=== PATIENT | male | born 1980 | race Caucasian/White ===

== ENCOUNTER 2020-04-18 21:08 | Emergency (ER) | payer OTHER ==
[2020-04-18 21:15] VITALS: RESP 18
--- NOTE | 2020-04-18 22:09 | XR ---
EXAMINATION TYPE: XR chest 2V DATE OF EXAM: 04/18/2020 COMPARISON: NONE HISTORY: Respiratory failure TECHNIQUE: 2 views FINDINGS: There is slight coarsening of interstitial markings. There is no pulmonary consolidation. H eart size is normal. There is no pleural effusion. Bony thorax is intact. IMPRESSION: Slight increased markings. No heart failure or pulmonary consolidation.
[2020-04-18 22:15] LABS: ALT 26 U/L (4-49); AST 35 U/L (17-59); African American GFR (CKD) >90 (>60 ml/min/1.73 sqM); Albumin 4.4 g/dL (3.5-5.0); Alkaline Phosphatase 82 U/L (38-126); Anion Gap 6 mmol/L; Blood Urea Nitrogen 10 mg/dL (9-20); Calcium 9.5 mg/dL (8.4-10.2); Carbon Dioxide 26 mmol/L (22-30); Chloride 106 mmol/L (98-107); Glucose 99 mg/dL (74-99); Non-African American GFR(CKD) >90 (>60 ml/min/1.73 sqM); Potassium 4.1 mmol/L (3.5-5.1); Sodium 138 mmol/L (137-145); Total Bilirubin 0.6 mg/dL (0.2-1.3)
[2020-04-18 23:13] LABS: Basophils # (A) 0.2 k/uL (0-0.2); Basophils % (A) 1 %; Eosinophils # (A) 0.3 k/uL (0-0.7); Eosinophils % (A) 2 %; HCT 49.3 % (39.0-53.0); HGB 16.8 gm/dL (13.0-17.5); Lymphocytes # (A) 4.8 k/uL (1.0-4.8); Lymphocytes % (A) 37 %; MCHC 34.1 g/dL (31.0-37.0); Mean Platelet Volume 6.9; Monocytes # (A) 0.8 k/uL (0-1.0); Monocytes % (A) 6 %; Neutrophils # (A) 6.7 k/uL (1.3-7.7); Neutrophils % (A) 52 %; Platelet Count 292 k/uL (150-450); RBC 5.42 m/uL (4.30-5.90); RDW 12.3 % (11.5-15.5); WBC 12.8 k/uL (3.8-10.6)
--- NOTE | 2020-04-18 23:13 | ED ---
General Adult HPI - General Source: patient, RN notes reviewed, old records reviewed Mode of arrival: ambulatory Limitations: no limitations <Malvin Cuevas - Last Filed: 04/18/20 23:20> <Melany Reardon - Last Filed: 04/19/20 02:10> - General Chief complaint: Recheck/Abnormal Lab/Rx Stated complaint: Sent by dr- cpap issues Time Seen by Provider: 04/18/20 21:30 - History of Present Illness Initial comments: 40-year-old male patient presents ED for evaluation. Patient reports that he has sleep apnea he has a CPAP device which monitors him during his sleep. Patient reports that he got a call he has been having apnic episodes during the night, primary care provider called patient for him to present to the hospital. Denies any acute complaints at this time. Systemic: Pt denies fatigue, fever/chills, rash. Pt denies weakness, night sweats, weight loss. Neuro: Pt denies headache, visual disturbances, syncope or pre-syncope. HEENT: Pt denies ocular discharge or irritation, otalgia, rhinorrhea, pharyngitis or notable lymphadenopathy. Cardiopulmonary: Pt denies chest pain, SOB, heart palpitations, dyspnea on exertion. Abdominal/GI: Pt denies abdominal pain, n/v/d. : Pt denies dysuria, burning w/ urination, frequency/urgency. Denies new onset urinary or bowel incontinence. MSK: Pt denies myalgia, loss of strength or function in extremities. Neuro: Pt denies new onset weakness, paresthesias. (Malvin Cuevas) - Related Data Home Medications Medication Instructions Recorded Confirmed Doxycycline Hyclate 100 mg PO DAILY 04/18/20 04/18/20 Fluconazole [Diflucan] 150 mg PO Q72H 04/18/20 04/18/20 Ibuprofen [Advil] 200 mg PO Q8HR PRN 04/18/20 04/18/20 Allergies Allergy/AdvReac Type Severity Reaction Status Date / Time acetaminophen [From [place]] Allergy Anaphylaxis Verified 04/18/20 21:53 aspirin Allergy Anaphylaxis Verified 04/18/20 21:53 hydrocodone [From [place]] Allergy Anaphylaxis Verified 04/18/20 21:53 Penicillins Allergy Anaphylaxis Verified 04/18/20 21:53 Review of Systems ROS Other: All systems not noted in ROS Statement are negative. <Malvin Cuevas - Last Filed: 04/18/20 23:20> ROS Other: All systems not noted in ROS Statement are negative. <Melany Reardon Agnes - Last Filed: 04/19/20 02:10> ROS Statement: Those systems with pertinent positive or pertinent negative responses have been documented in the HPI. Past Medical History Past Medical History: Asthma Additional Past Medical History / Comment(s): collapsed lungs 2016, sleep apnea History of Any Multi-Drug Resistant Organisms: None Reported Additional Past Surgical History / Comment(s): abdominal surgery Past Psychological History: No Psychological Hx Reported Smoking Status: Current every day smoker Past Alcohol Use History: Occasional Past Drug Use History: Marijuana <Malvin Cuevas - Last Filed: 04/18/20 23:20> General Exam Limitations: no limitations <Malvin Cuevas - Last Filed: 04/18/20 23:20> - General Exam Comments Initial Comments: Constitutional: NAD, AOX3, Pt has pleasant affect. HEENT: NC/AT, trachea midline, neck supple, no lymphadenopathy. Posterior pharynx non erythematous, without exudates. External ears appear normal, without discharge. Mucous membranes moist. Eyes PERRLA, EOM intact. There is no scleral icterus. No pallor noted. Cardiopulmonary: RRR, no murmurs, rubs or gallops, no JVD noted. Lungs CTAB in anterior and posterior river[place]. No peripheral edema. Abdominal exam: Abdomen soft and non-distended. Abdomen non-tender to palpation in all 4 quadrants. Bowel sounds active in LLQ. No hepatosplenomegaly. No ecchymosis Neuro: CN II-XII grossly intact. No nuchal rigidity. No raccon eyes, no og sign, no hemotympanum. No cervical spinal tenderness. MSK: Full active ROM in upper and lower extremities, 5/5 stregnth. (Malvin Cuevas) Course Vital Signs 04/18/20 04/18/20 21:12 23:24 Temperature 98.4 F 98.0 F Pulse Rate 86 65 Respiratory 18 18 Rate Blood Pressure 138/91 125/79 O2 Sat by Pulse 97 95 Oximetry Medical Decision Making - Lab Data Result diagrams: 04/18/20 21:45 04/18/20 21:45 - EKG Data -: EKG Interpreted by Me (and Dr. Reardon. ) <Malvin Cuevas - Last Filed: 04/18/20 23:20> - Lab Data Result diagrams: 04/18/20 21:45 04/18/20 21:45 <Melany Reardon - Last Filed: 04/19/20 02:10> - Medical Decision Making 40-year-old male patient presents to ED for evaluation after observing sleeping. Patient vital signs stable, afebrile. Physical exam did not acute pathology. Laboratory investigations unremarkable. case was discussed with Dr. Arthur of [facility] who did not reccomend admission. Patient will be discharged with outpatient follow up. Case idscussed with Dr. Reardon. (Malvin Cuevas) I discussed patient care with medicine corporate communications manager Dr Arthur who states that at this time the patient does not require inpatient care, needs additional out patient sleep study workup outpatient, does not accept admission at this time. (Melany Reardon) - Lab Data Lab Results 04/18/20 04/18/20 04/18/20 Range/Units 21:45 21:45 21:45 WBC 12.8 H (3.8-10.6) k/uL RBC 5.42 (4.30-5.90) m/uL Hgb 16.8 (13.0-17.5) gm/dL Hct 49.3 (39.0-53.0) % MCV 91.0 (80.0-100.0) fL MCH 31.0 (25.0-35.0) pg MCHC 34.1 (31.0-37.0) g/dL RDW 12.3 (11.5-15.5) % Plt Count 292 (150-450) k/uL Neutrophils % 52 % Lymphocytes % 37 % Monocytes % 6 % Eosinophils % 2 % Basophils % 1 % Neutrophils # 6.7 (1.3-7.7) k/uL Lymphocytes # 4.8 (1.0-4.8) k/uL Monocytes # 0.8 (0-1.0) k/uL Eosinophils # 0.3 (0-0.7) k/uL Basophils # 0.2 (0-0.2) k/uL Sodium 138 (137-145) mmol/L Potassium 4.1 (3.5-5.1) mmol/L Chloride 106 (98-107) mmol/L Carbon Dioxide 26 (22-30) mmol/L Anion Gap 6 mmol/L BUN 10 (9-20) mg/dL Creatinine 0.63 L (0.66-1.25) mg/dL Est GFR (CKD-EPI)AfAm >90 (>60 ml/min/1.73 sqM) Est GFR (CKD-EPI)NonAf >90 (>60 ml/min/1.73 sqM) Glucose 99 (74-99) mg/dL Calcium 9.5 (8.4-10.2) mg/dL Total Bilirubin 0.6 (0.2-1.3) mg/dL AST 35 (17-59) U/L ALT 26 (4-49) U/L Alkaline Phosphatase 82 (38-126) U/L Troponin I <0.012 (0.000-0.034) ng/mL Total Protein 7.0 (6.3-8.2) g/dL Albumin 4.4 (3.5-5.0) g/dL - EKG Data EKG Comments: Ventricular rate 71, QRS 80, QT/QTC 372/44. Normal sinus rhythm, normal EKG, no concern for acute ischemia. (Malvin Cuevas) Disposition Is patient prescribed a controlled substance at d/c from ED?: No <Malvin Cuevas - Last Filed: 04/18/20 23:20> <Melany Reardon - Last Filed: 04/19/20 02:10> Clinical Impression: Sleep apnea Disposition: HOME SELF-CARE Condition: Stable Instructions (If sedation given, give patient instructions): Sleep Apnea (DC) Additional Instructions: follow-up with your elementary school registrar tomorrow. Have your CPAP refitted and ensure that it is appropriately fitted. Recommend repeat sleep study. Return to ER if any worsening symptoms. If you're unable to follow-up to elementary school registrar I'll provide you an additional reference. Referrals: Olvin Jones DO [Primary Care Provider] - 1-2 days Renaldo Pollock MD [STAFF PHYSICIAN] - 1-2 days
[2020-04-18 23:26] VITALS: BP 125/79; PULSE 65; TEMP 98
== END 2020-04-18 23:36 | disposition home or self-care (01) ==
LOC: EC 21:08
DX: G47.30 Sleep apnea, unspecified (principal); F17.200 Nicotine dependence, unspecified, uncomplicated; Z79.899 Other long term (current) drug therapy; Z88.5 Allergy status to narcotic agent; Z88.6 Allergy status to analgesic agent; Z88.0 Allergy status to penicillin; Z99.89 Dependence on other enabling machines and devices
CPT/HCPCS: 36415; 71046; 80053; 84484; 85025; 93005; 99284